=== PATIENT | female | born 1965 | race Two or more races ===

== ENCOUNTER 2017-07-03 12:53 | Emergency (ER) | payer SELFPAY ==
[2017-07-03 13:07] VITALS: BMI 31.3
--- NOTE | 2017-07-03 13:33 | PDOC ---
History of Present Illness - General Chief Complaint: Pain, Acute Stated Complaint: PAIN Time Seen by Provider: 07/03/17 13:25 - History of Present Illness Initial Comments: 07/03/17 13:47 The patient is a 52 year old female with a history of IDDM, HTN, HLD, Arthritis who presents for evaluation of cough, body aches, chest pain, and abdominal pain. The patient reports a 3 day history of generalized body aches with an associated cough and fevers that has not been improving despite tylenol. The patient also reports intermittent sharp chest pain that occurs when she coughs as well as some generalized abdominal cramping. She otherwise denies any SOB, nausea, vomiting, or changes with urination or bowel movements. Past History - Past Medical History Allergies/Adverse Reactions: Allergies Allergy/AdvReac Type Severity Reaction Status Date / Time No Known Allergies Allergy Verified 07/03/17 13:01 Home Medications: Ambulatory Orders Oseltamivir Phosphate [Tamiflu] 75 mg PO BID #10 capsule 07/03/17 COPD: No Diabetes: Yes HTN: Yes Hypercholesterolemia: Yes Kidney Stones: Yes Other medical history: ARTHRITIS - Suicide/Smoking/Psychosocial Hx Smoking History: Never smoked Review of Systems - Review of Systems Comments:: 07/03/17 13:51 Constitutional: Body aches, fevers, chills. No fatigue, HEENT: No Rhinorrhea, nasal congestion, visual changes Cardiovascular: Chest pain. No syncope, palpitations, lightheadedness Respiratory: Cough, No SOB, Hemoptysis, Gastrointestinal: Abdominal cramping. No Nausea, Vomiting, Constipation, Diarrhea, Melena Genitourinary: No Dysuria, Frequency, Urgency, Hesitancy, Hematuria, Flank pain Musculoskeletal: No Myalgia, arthralgia Skin: No rashes, bruising, pallor Neurologic: No Headache, Dizziness, Numbness, Weakness, or Tingling Psychiatric: No Hallucinations. No SI or HI *Physical Exam - Vital Signs Last Vital Signs Temp Pulse Resp BP Pulse Ox 100 F H 86 17 174/86 98 07/03/17 13:02 07/03/17 13:02 07/03/17 13:02 07/03/17 13:02 07/03/17 13:02 - Physical Exam Comments: 07/03/17 13:52 General Appearance: Nourished. No Apparent Distress HEENT: EOMI, CYNDY. No Pharyngeal Erythema, Tonsillar Exudate, Tonsillar Erythema Neck: No Cervical Lymphadenopathy Respiratory/Chest: Lungs Clear, Normal Breath Sounds. No Crackles, Rales, Rhonchi, Wheezing Cardiovascular: Regular Rhythm, Regular Rate. No Murmur, Gallops, Rubs Gastrointestinal/Abdominal: Normal Bowel Sounds, Soft. No Guarding, Rebound, Tenderness Musculoskeletal: No CVA Tenderness Extremity: Normal Capillary Refill Integumentary: Normal Color, Dry, Warm Neurologic: Fully Oriented, Alert, Normal Mood/Affect, Normal Response, Heart Score/ECG Review #1 ECG reviewed & interpreted by me at: 15:08 General ECG Interpretation: Sinus Rhythm, Normal Rate, Normal Intervals, No acute ischemic changes ED Treatment Course - LABORATORY CBC & Chemistry Diagram: 07/03/17 14:10 07/03/17 14:10 Medical Decision Making - Medical Decision Making 07/03/17 13:54 The patient is a 52 year old female with a history of IDDM, HTN, HLD, Arthritis who presents for evaluation of cough, body aches, chest pain, and abdominal pain. Differential includes but is not limited to: Influenza, viral syndrome, acs, gastroenteritis, pneumonia, infectious, metabolic derangement. Given the patient's history and physical exam, it is likely the patient's symptoms are due to a viral syndrome or influenza. We will obtain a cbc, cmp, troponin, lipase, chest plain film, ekg to evaluate for other etiologies and send an influenza swab. We will treat with iv fluids, zofran, iv tylenol and continue to monitor and reassess. 07/03/17 15:24 cbc,cmp, troponin, lipase, ua were unremarkable. chest plain film is unremarkable. Patient tested influenza positive. Her symptoms are likely due to influenza infection. We are comfortable discharging the patient home at this time. We discussed the results and the plan with the patient and her family who voiced understanding and is agreeable with the plan. *DC/Admit/Observation/Transfer Diagnosis at time of Disposition: Influenza - Discharge Dispostion Disposition: HOME Condition at time of disposition: Improved Admit: No - Prescriptions Prescriptions: Oseltamivir Phosphate [Tamiflu] 75 mg PO BID #10 capsule - Referrals Referrals: Juan Jose Martinez [Primary Care Provider] - - Patient Instructions Printed Discharge Instructions: DI for Influenza -- Adult Additional Instructions: Please return to the ER if you experience concerning or worsening symptoms including worsening fevers, difficulty breathing, or chest pain. Your lab results and x-rays were normal here in the ER. You were Flu positive and your symptoms are likely due to the flu. We have sent a prescription to the pharmacy for a medication to help with your symptoms. Please continue to stay well hydrated. Please call to schedule a follow up appointment with your primary care provider within 1 week to discuss your ER visit. - Post Discharge Activity Forms/Work/School Notes: Back to Work
[2017-07-03] MEDS ORDERED: ACETAMINOPHEN 1000 MG/100 ML VIAL (NON FORMULARY) IVPB ONE (13:34)
[2017-07-03] MEDS ORDERED: SODIUM CHLORIDE 1,000 ML IV STA (13:42)
[2017-07-03] MEDS ORDERED: ONDANSETRON 4 MG/2 ML VIAL IVPUSH ONE (13:42)
[2017-07-03] MEDS ORDERED: ACETAMINOPHEN INJECTION 100 ML IVPB ONE (14:13)
[2017-07-03] MEDS ORDERED: ONDANSETRON 4 MG/2 ML VIAL ONE (14:13)
[2017-07-03 14:21] LABS: BASO % 0.9 % (0-2.0); EOS % 1.8 % (0-4.5); LYMPH % 29.6 % (8-40); MCH 25.5 pg (25.7-33.7); MCHC 31.6 g/dl (32.0-36.0); MEAN CELL VOLUME 80.7 fl (80-96); MEAN PLT VOLUME 9.9 fl (7.5-11.1); NEUT % 54.7 % (42.8-82.8); PLATELET COUNT 178 K/MM3 (134-434); RBC 4.71 M/mm3 (3.60-5.2); RDW 14.4 % (11.6-15.6); WHITE BLOOD COUNT 4.5 K/mm3 (4.0-10.0)
[2017-07-03 14:48] LABS: ALBUMIN 3.4 g/dl (3.4-5.0); ANION GAP 8 (8-16); BILIRUBIN,TOTAL 0.2 mg/dL (0.2-1.0); BLOOD UREA NITROGEN 10 mg/dL (7-18); CHLORIDE 103 mmol/L (98-107); CO2 29 mmol/L (21-32); CREATININE 0.6 mg/dL (0.55-1.02); GLUCOSE,RANDOM 131 mg/dL (74-106); POTASSIUM 4.1 mmol/L (3.5-5.1); SGOT/AST 25 U/L (15-37); SGPT/ALT 25 U/L (12-78); SODIUM 140 mmol/L (136-145); TOT PROT 7.3 g/dl (6.4-8.2)
[2017-07-03 14:50] LABS: ALK PHOS 96 U/L (45-117)
[2017-07-03 14:53] LABS: LIPASE 220 U/L (73-393)
[2017-07-03 15:04] LABS: URINE APPEARANCE CLEAR; URINE BILIRUBIN NEGATIVE (NEGATIVE); URINE BLOOD NEGATIVE (NEGATIVE); URINE COLOR LTYELLOW; URINE GLUCOSE (UA) NEGATIVE (NEGATIVE); URINE KETONE NEGATIVE (NEGATIVE); URINE LEUK ESTERASE NEGATIVE (NEGATIVE); URINE NITRITE NEGATIVE (NEGATIVE); URINE PROTEIN NEGATIVE (NEGATIVE); URINE UROBILINOGEN NEGATIVE mg/dL (0.2-1.0)
--- NOTE | 2017-07-03 15:10 | PDOC ---
Attending Attestation - Resident Resident Name: Franck Goodman - ED Attending Attestation I have performed the following: I have examined & evaluated the patient, The case was reviewed & discussed with the resident, I agree w/resident's findings & plan, Exceptions are as noted - HPI HPI: 07/03/17 15:08 52-year-old female presents with URI symptoms, diffuse intermittent abdominal discomfort with nausea, suprapubic discomfort. Low-grade fever and chills, no recent travel. - Physicial Exam PE: 07/03/17 15:08 Low-grade temp 100, O2 sat normal. Warm to touch, positive upper respiratory nasal congestion Oropharynx clear, neck supple Lungs are clear Abdomen is soft/nondistended, suprapubic discomfort to palpation without guarding or rebound No rash, no extremity swelling - Medical Decision Making 07/03/17 15:09 Patient seen and evaluated with the resident. I agree with the overall evaluation, assessment, and management with the following summary of visit: 52-year-old female with viral syndrome, both upper respiratory and GI symptoms, also with suprapubic discomfort and questionable UTI symptoms. No evidence for focal infectious process other than possible UTI, rule out influenza. Labs, urinalysis Influenza Antipyretics, IV fluids Reassess Heart Score/ECG Review #1 General ECG Interpretation: Sinus Rhythm, Normal Rate, Normal Intervals, No acute ischemic changes
[2017-07-03 15:47] VITALS: BP 136/72; PULSE 76; TEMP 98.2
--- NOTE | 2017-07-04 15:13 | EKG ---
Test Reason : Blood Pressure : / mmHG Vent. Rate : 079 BPM Atrial Rate : 079 BPM P-R Int : 132 ms QRS Dur : 076 ms QT Int : 378 ms P-R-T Axes : 054 023 035 degrees QTc Int : 433 ms NORMAL SINUS RHYTHM NORMAL ECG NO PREVIOUS ECGS AVAILABLE Confirmed by Prabhakar Dutton MD ([id number]) on 07/04/2017 3:13:03 PM Referred By: Confirmed By:Prabhakar Dutton MD
--- NOTE | 2017-07-05 09:25 | PDOC ---
Patient Follow-up (Call Back) - Post ED Follow - Up Condition at time of discharge: Improved Disposition at time of original discharge: HOME Reason for Call Back: Abnwl. Microbiology (Patient with positive urine culture was diagnosed with influenza a, on Tamiflu awaiting sensitivity)
== END 2017-07-03 15:47 | disposition home or self-care (01) ==
LOC: JER 12:53
PROC: 3E033NZ Introduction of Analgesics, Hypnotics, Sedatives into Peripheral Vein, Percutaneous Approach (ICD-10-PCS; principal; 2017-07-03)
PROC: 3E033GC Introduction of Other Therapeutic Substance into Peripheral Vein, Percutaneous Approach (ICD-10-PCS; 2017-07-03)
DX: J10.1 Influenza due to other identified influenza virus with other respiratory manifestations (principal); I10 Essential (primary) hypertension; E78.00 Pure hypercholesterolemia, unspecified; E11.9 Type 2 diabetes mellitus without complications; Z79.4 Long term (current) use of insulin
CPT/HCPCS: 36415; 71046-TC; 80053; 81003; 82550; 82553; 83690; 84484; 85025; 87086; 87186; 87804; 93005; 93010; 99284-25

== ENCOUNTER 2023-01-07 14:47 | Emergency (ER) | payer OTHER ==
[2023-01-07 15:07] VITALS: TEMP 98.6; BMI 26.4
[2023-01-07] MEDS ORDERED: ACETAMINOPHEN 500 MG TABLET (FP) PO ONE (16:06)
[2023-01-07] MEDS ORDERED: ACETAMINOPHEN 500 MG TABLET (FP) ONE (16:22)
[2023-01-07 17:49] VITALS: BP 117/55; PULSE 64; RESP 14
== END 2023-01-07 17:59 | disposition home or self-care (01) ==
LOC: JER 14:47
DX: S09.90XA Unspecified injury of head, initial encounter (principal); R51.9 Headache, unspecified; M25.511 Pain in right shoulder; M25.512 Pain in left shoulder; M79.641 Pain in right hand; W20.8XXA Other cause of strike by thrown, projected or falling object, initial encounter; Y93.89 Activity, other specified; Y92.59 Other trade areas as the place of occurrence of the external cause
CPT/HCPCS: 70450-TC; 72125-TC; 99284-25

== ENCOUNTER 2025-03-07 20:51 | Observation (INO) | payer OTHER ==
[2025-03-07] MEDS ORDERED: METOCLOPRAMIDE HCL INJECTION 10 MG/2 ML VIAL ONE (21:59)
[2025-03-07] MEDS ORDERED: FAMOTIDINE 20 MG/50 ML IVPB 20 MG/50 ML MG IVPB ONE (21:59)
[2025-03-07 22:50] LABS: URINE APPEARANCE CLEAR; URINE BILIRUBIN NEGATIVE (NEGATIVE); URINE COLOR YELLOW; URINE GLUCOSE (UA) 3+ (NEGATIVE); URINE KETONE TRACE (NEGATIVE); URINE LEUK ESTERASE NEGATIVE (NEGATIVE); URINE NITRITE NEGATIVE (NEGATIVE); URINE PROTEIN NEGATIVE (NEGATIVE); URINE UROBILINOGEN 0.2 mg/dL (0.2-1.0)
[2025-03-07] MEDS: SODIUM CHLORIDE 0.9% 500 ML INFUS.BAG IV ONE (22:57)
[2025-03-07] MEDS: METOCLOPRAMIDE HCL INJECTION 10 MG/2 ML VIAL IVPUSH ONE (22:58)
[2025-03-07] MEDS: FAMOTIDINE 20 MG/50 ML IVPB 20 MG/50 ML MG IVPB ONE (22:58)
[2025-03-07 23:12] LABS: MEAN CELL VOLUME 82.7 fl (79.4-94.8)
[2025-03-07 23:13] LABS: EOSINOPHIL % 0.0 % (0.7-5.8); MCHC 32.4 g/dl (32.2-35.5); MONOCYTE % 2.8 % (4.7-12.5); RDW 13.4 % (12.4-16.4)
[2025-03-08 00:07] LABS: GLUCOSE,RANDOM 320.0 mg/dL (74-106)
[2025-03-08 00:08] LABS: TOT PROT 7.6 g/dl (6.4-8.2)
[2025-03-08 00:09] LABS: CO2 25.0 mmol/L (21-32)
[2025-03-08 00:10] LABS: ALK PHOS 117.0 U/L (40-150)
[2025-03-08 00:13] LABS: CREATININE 0.68 mg/dL (0.55-1.3); SGOT/AST 31.0 U/L (5-34); SGPT/ALT 25.0 U/L (0-55)
[2025-03-08 00:34] LABS: HCV DIAGNOSTIC IN-HOUSE W/RFLX NON-REACTIVE (NONREACTIVE); HIV INTERPRETATION NEGATIVE (NEGATIVE)
[2025-03-08] MEDS: MAGNESIUM SULFATE IN WATER 2 GM/50 ML IVPB IVPB ONE (03:54)
[2025-03-08 04:32] VITALS: BMI 32.8
[2025-03-08] MEDS: INSULIN ASPART SLIDING SCALE (NOVOLOG) 1 VIAL SQ SCH (06:34)
[2025-03-08 06:54] LABS: ABSOLUTE IMMATURE GRANULOCYTES 0.12 x10^3/uL (0.0-0.031); BASOPHILS # 0.02 x10^3/uL (0.01-0.08); EOSINOPHIL % 0.2 % (0.7-5.8); EOSINOPHILS # 0.02 x10^3/uL (0.04-0.36); MCHC 31.7 g/dl (32.2-35.5); MEAN CELL VOLUME 84.2 fl (79.4-94.8); MEAN PLT VOLUME 12.4 fl (9.4-12.3); MONOCYTE # 0.60 x10^3/uL (0.24-0.86); MONOCYTE % 6.5 % (4.7-12.5); RDW 13.2 % (12.4-16.4)
[2025-03-08 07:37] LABS: GLUCOSE,RANDOM 277.0 mg/dL (74-106)
[2025-03-08 07:39] LABS: CO2 28.0 mmol/L (21-32)
[2025-03-08 07:43] LABS: CREATININE 0.69 mg/dL (0.55-1.3)
[2025-03-08] MEDS: PANTOPRAZOLE 40 MG TABLET PO SCH (10:10)
[2025-03-08 14:15] VITALS: RESP 18
[2025-03-08] MEDS: POLYETHYLENE GLYCOL (HEALTHYLAX) 3350 17 GM PACKET PO SCH (21:55)
[2025-03-08] MEDS: ATORVASTATIN CA 20 MG TABLET (FP) PO SCH (21:56)
[2025-03-09 07:43] LABS: ABSOLUTE IMMATURE GRANULOCYTES 0.08 x10^3/uL (0.0-0.031); BASOPHILS # 0.04 x10^3/uL (0.01-0.08); EOSINOPHIL % 0.9 % (0.7-5.8); EOSINOPHILS # 0.07 x10^3/uL (0.04-0.36); MCHC 32.2 g/dl (32.2-35.5); MEAN CELL VOLUME 84.5 fl (79.4-94.8); MEAN PLT VOLUME 12.4 fl (9.4-12.3); MONOCYTE # 0.59 x10^3/uL (0.24-0.86); MONOCYTE % 7.5 % (4.7-12.5); RDW 13.5 % (12.4-16.4)
[2025-03-09 08:05] LABS: GLUCOSE,RANDOM 149.0 mg/dL (74-106); TOT PROT 6.4 g/dl (6.4-8.2)
[2025-03-09 08:06] LABS: CO2 31.0 mmol/L (21-32)
[2025-03-09 08:08] LABS: ALK PHOS 86.0 U/L (40-150)
[2025-03-09 08:10] LABS: SGOT/AST 25.0 U/L (5-34); SGPT/ALT 24.0 U/L (0-55)
[2025-03-09 08:11] LABS: CREATININE 0.74 mg/dL (0.55-1.3); INR 0.93 (0.83-1.09); PROTHROMBIN TIME (PATIENT) 10.1 SEC (9.7-13.0)
[2025-03-09 08:14] LABS: ACTIVATED PTT 23.8 SECONDS (25.2-36.5)
[2025-03-09 08:15] LABS: LDL CHOLESTEROL (ONLY SJRH) 102.0 mg/dL (5-100)
[2025-03-09 08:24] LABS: N-TERMINAL BNP 182.2 pg/mL (0-299.9)
[2025-03-09 08:25] LABS: IRON SERUM 54.0 ug/dL (50-175)
[2025-03-09] MEDS: MECLIZINE HCL 25 MG TABLET (FP) PO PRN (09:31)
[2025-03-09] MEDS: INSULIN GLARGINE (LANTUS) 100 UNITS/ML UNITS SQ SCH (21:28)
[2025-03-10 09:51] LABS: ABSOLUTE IMMATURE GRANULOCYTES 0.07 x10^3/uL (0.0-0.031); BASOPHILS # 0.04 x10^3/uL (0.01-0.08); EOSINOPHIL % 1.0 % (0.7-5.8); EOSINOPHILS # 0.07 x10^3/uL (0.04-0.36); MCHC 32.2 g/dl (32.2-35.5); MEAN CELL VOLUME 85.6 fl (79.4-94.8); MEAN PLT VOLUME 12.2 fl (9.4-12.3); MONOCYTE # 0.70 x10^3/uL (0.24-0.86); MONOCYTE % 9.7 % (4.7-12.5); RDW 13.3 % (12.4-16.4)
[2025-03-10 10:18] LABS: GLUCOSE,RANDOM 138.0 mg/dL (74-106); TOT PROT 6.3 g/dl (6.4-8.2)
[2025-03-10 10:19] LABS: CO2 25.0 mmol/L (21-32)
[2025-03-10 10:21] LABS: ALK PHOS 95.0 U/L (40-150)
[2025-03-10 10:24] LABS: CREATININE 0.65 mg/dL (0.55-1.3); SGOT/AST 25.0 U/L (5-34)
[2025-03-10 10:42] LABS: SGPT/ALT 23.0 U/L (0-55)
[2025-03-10] MEDS ORDERED: INSULIN ASPART SLIDING SCALE (NOVOLOG) 1 VIAL SQ ONE (11:36)
[2025-03-10 15:17] VITALS: BP 118/67; PULSE 95; TEMP 98.9
== END 2025-03-10 18:50 | disposition home or self-care (01) ==
LOC: JER 20:51 → INTOOBSV 03-08 00:05 → JERBED 03-08 00:05 → J8W 03-08 03:56
PROVIDERS: ADMIT Internal Medicine; ATTEND Internal Medicine
PROC: 3E033GC Introduction of Other Therapeutic Substance into Peripheral Vein, Percutaneous Approach (ICD-10-PCS; principal; 2025-03-08)
PROC: 3E013VG Introduction of Insulin into Subcutaneous Tissue, Percutaneous Approach (ICD-10-PCS; 2025-03-08)
DX: R10.13 Epigastric pain (principal); K59.00 Constipation, unspecified; R42 Dizziness and giddiness; I10 Essential (primary) hypertension; E78.5 Hyperlipidemia, unspecified; H91.90 Unspecified hearing loss, unspecified ear; E11.9 Type 2 diabetes mellitus without complications; Z79.85 Long-term (current) use of injectable non-insulin antidiabetic drugs; R07.89 Other chest pain; Z87.442 Personal history of urinary calculi
CPT/HCPCS: 36415; 71045-TC-FY; 74176-TC; 76700-TC; 80048; 80053; 80061; 81003; 82150; 82728; 82962; 83036; 83540; 83550; 83690; 83735; 83880; 84100; 84439; 84443; 84484; 85025; 85610; 85730; 86140; 86803; 87389; 93005; 93010; 96365; 96367; 96372; 96375; 99285-25; G0378